=== PATIENT | female | born 1970 | race Caucasian/White ===

== ENCOUNTER 2019-11-30 13:16 | Emergency (ER) | payer OTHER ==
[~2019-11-30] VITALS: Ht 162.6 cm; Wt 52.6 kg
[~2019-11-30 13:16] MED LIST: DIAZ5 PO; KETO10 PO; ONDA4ODT MM; OXYACE5T PO; PHENA200 PO; RXONDA4ODT MM; RXOXYACE PO; TRAM50 PO
[2019-11-30 15:09] LABS: BASOPHILS ABSOLUTE AUTO 0.07 K/mm3 (0.00-0.23); BASOPHILS PERCENT AUTO 1 % (0-2); EOSINOPHILS ABSOLUTE AUTO 0.21 K/mm3 (0.00-0.68); EOSINOPHILS PERCENT AUTO 4 % (0-6); Hematocrit 36.3 % (33.0-51.0); Hemoglobin 10.8 g/dL (11.5-16.0); IMMATURE GRAN ABSOLUTE AUTO 0.01 K/mm3 (0.00-0.10); IMMATURE GRAN PERCENT AUTO 0 % (0-1); LYMPHOCYTES ABSOLUTE AUTO 2.25 K/mm3 (0.84-5.20); LYMPHOCYTES PERCENT AUTO 38 % (21-46); MONOCYTES ABSOLUTE AUTO 0.37 K/mm3 (0.16-1.47); MONOCYTES PERCENT AUTO 6 % (4-13); Mean Corpuscular HGB Conc 29.8 g/dL (31.5-36.5); Mean Corpuscular Volume 74 fL (80-100); Mean Platelet Volume 10.5 fL (9.1-12.4); NEUTROPHILS PERCENT AUTO 51 % (41-73); Platelet Count 317 K/mm3 (150-400); RDW Coefficient Variation 19.8 % (11.7-14.2); RDW Standard Deviation 52.1 fL (35.1-46.3); Red Blood Cell Count 4.91 M/mm3 (3.80-5.20); White Blood Cell Count 5.91 K/mm3 (4.00-11.30)
[2019-11-30 15:31] LABS: Alanine Aminotransfer (ALT/SGP 16 U/L (12-78); Albumin, Blood 3.9 g/dL (3.4-5.0); Albumin/Globulin Ratio 0.9 (0.8-1.8); Alk Phos 64 U/L (50-136); Anion Gap 2 mmol/L (6-16); Aspartate Aminotrans (AST/SGOT 11 U/L (12-37); Bilirubin, Total 0.6 mg/dL (0.1-1.0); Blood Urea Nitrogen 14 mg/dL (8-24); Bun/Creatinine Ratio 19.8 (12.0-20.0); CO2, Blood 31 mmol/L (21-32); Calcium, Blood 8.8 mg/dL (8.5-10.1); Chloride, Blood 104 mmol/L (98-108); Creatinine, Blood 0.71 mg/dL (0.40-1.00); Globulin, Blood 4.4 g/dL (2.2-4.0); Glomerular Filtration Rate >60 (60-); Glucose, Blood 85 mg/dL (70-99); Potassium, Blood 3.8 mmol/L (3.5-5.5); Sodium, Blood 137 mmol/L (136-145); Total Protein, Blood 8.3 g/dL (6.4-8.2)
== END 2019-11-30 16:40 | disposition left against medical advice (07) ==
LOC: ER 13:16
PROVIDERS: Physician Assistant
DX: R13.10 Dysphagia, unspecified (principal); R11.10 Vomiting, unspecified; Z98.84 Bariatric surgery status
CPT/HCPCS: 36415; 80053; 85025; 96360; 99283-25; J7030

== ENCOUNTER 2019-12-02 22:01 | Observation (INO) | payer OTHER ==
[~2019-12-02] VITALS: Ht 162.6 cm; Wt 53.7 kg
[2019-12-02] MEDS ORDERED: ALPRAZOLAM0.5 M1 PO (22:23)
[2019-12-02] MEDS ORDERED: TRAZ100 PO (22:24)
[2019-12-02 22:45] LABS: BASOPHILS ABSOLUTE AUTO 0.05 K/mm3 (0.00-0.23); BASOPHILS PERCENT AUTO 1 % (0-2); EOSINOPHILS ABSOLUTE AUTO 0.24 K/mm3 (0.00-0.68); EOSINOPHILS PERCENT AUTO 4 % (0-6); Hematocrit 32.3 % (33.0-51.0); Hemoglobin 9.5 g/dL (11.5-16.0); IMMATURE GRAN PERCENT AUTO 0 % (0-1); LYMPHOCYTES ABSOLUTE AUTO 2.18 K/mm3 (0.84-5.20); LYMPHOCYTES PERCENT AUTO 39 % (21-46); MONOCYTES ABSOLUTE AUTO 0.42 K/mm3 (0.16-1.47); MONOCYTES PERCENT AUTO 8 % (4-13); Mean Corpuscular HGB 21.6 pg (26.0-34.0); Mean Corpuscular HGB Conc 29.4 g/dL (31.5-36.5); Mean Corpuscular Volume 74 fL (80-100); Mean Platelet Volume 10.5 fL (9.1-12.4); NEUTROPHILS ABSOLUTE AUTO 2.66 K/mm3 (1.96-9.15); NEUTROPHILS PERCENT AUTO 48 % (41-73); Platelet Count 289 K/mm3 (150-400); RDW Coefficient Variation 19.5 % (11.7-14.2); RDW Standard Deviation 51.7 fL (35.1-46.3); Red Blood Cell Count 4.39 M/mm3 (3.80-5.20); White Blood Cell Count 5.55 K/mm3 (4.00-11.30)
[2019-12-02 23:04] LABS: Alanine Aminotransfer (ALT/SGP 14 U/L (12-78); Albumin, Blood 3.3 g/dL (3.4-5.0); Albumin/Globulin Ratio 0.8 (0.8-1.8); Alk Phos 57 U/L (50-136); Anion Gap 2 mmol/L (6-16); Aspartate Aminotrans (AST/SGOT 10 U/L (12-37); Bilirubin, Total 0.4 mg/dL (0.1-1.0); Blood Urea Nitrogen 11 mg/dL (8-24); Bun/Creatinine Ratio 15.2 (12.0-20.0); CO2, Blood 31 mmol/L (21-32); Calcium, Blood 8.3 mg/dL (8.5-10.1); Chloride, Blood 107 mmol/L (98-108); Creatinine, Blood 0.72 mg/dL (0.40-1.00); Globulin, Blood 3.9 g/dL (2.2-4.0); Glomerular Filtration Rate >60 (60-); Glucose, Blood 88 mg/dL (70-99); Potassium, Blood 3.5 mmol/L (3.5-5.5); Sodium, Blood 140 mmol/L (136-145); Total Protein, Blood 7.2 g/dL (6.4-8.2)
[2019-12-02 23:46] LABS: Source, Urine Clean Catch
[2019-12-02 23:49] LABS: Appearance, Urine Clear (Clear); Blood, Urine 1+ (Neg); Color, Urine Amber (P-Yellow); Glucose Qualitative, Urine Neg (Neg); Ketones, Urine 1+ (Neg); Leukocyte Esterase, Urine 1+ (Neg); Nitrite, Urine Neg (Neg); Protein, Urine 2+ (Neg); Specific Gravity, Urine 1.025 (1.003-1.022); Urobilinogen, Urine 2+ (Normal)
[2019-12-02 23:50] LABS: Bilirubin, Urine 1+ (Neg)
[2019-12-02 23:58] LABS: Bacteria Many /hpf; Calcium Oxalate Crystals Few /hpf; Mucus Heavy (0-Heavy); Red Blood Cells, Urine 0-2 /hpf (0-2); Squamous Epithelial Cells Few /hpf (Few)
[2019-12-03] MEDS ORDERED: FAMO20 PO (03:02)
--- NOTE | 2019-12-03 03:41 | NUR ---
0257 PT ARRIVED TO ROOM VIA WC FROM ER IN STABLE CONDITION. PT REPORTS CRAMPING ABD PAIN, NAUSEA BUT STATES NAUSEA IS REALLY HER BASELINE AND SHE JUST DOESN'T KEEP THINGS DOWN, SOB WITH PAIN. PT RATES HER PAIN AT A 5/10 AND JUST RECIEVED FENTANYL. ON RA AT 98%. PT REPORTS THAT SHE WOULDN'T REALLY CALL IT NAUSEA THAT SHE JUST THROWS UP OR CAN'T KEEP FOOD DOWN BUT THAT IT IS NORMAL FOR HER. WILL CONTINUE TO MONITOR FOR NEED FOR ANY MORE PRN'S AND ADMINISTER MEDICATIONS SCHEDULED. NO OTHER APPARENT SIGNS OF DISTRESS. CALL LIGHT IS IN REACH.
--- NOTE | 2019-12-03 05:55 | NUR ---
PT IS AAO X 4, ON RA 98%. 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 SOB WITH PAIN. SCD'S.
--- NOTE | 2019-12-03 05:55 | NUR ---
PT LYING IN BED, EYES CLOSED, APPEARS TO BE RESTING. BREATHING IS EVEN, UNLABORED. NO APPARENT SIGNS OF DISTRESS. CALL LIGHT IS IN REACH. NO OTHER CHANGES THIS SHIFT.
--- NOTE | 2019-12-03 08:46 | NUR ---
PER HE IS IN OFFICE MARYANNE. PATIENT CAN EAT ANYTHING TODAY.HE WILL WRITE ORDERS FOR LATER. PROCEDURE PROBABLY 729
--- NOTE | 2019-12-03 10:07 | NUR ---
PATIENT DOES NOT WISH TO WAIT TILL TOMORROW TO HAVE EGD. IN TO TALK TO PATIENT. PATIENT SIGNS AMA. PER HE WOULD DO PROCEDURE TOMORROW MORNING. SAID=WILMAN ALSO EXPLAINS SHE IS NOT EMERGENCY AND THOSE WHO ARE HAVE TO COME FIRST. PATIENT STS "I DON'T CARE ABOUTN ANYONE ELSE." IV TAKEN OUT, HOME APPLIANCE TECHNICIAN WALKS PATIENT DONE TO E.R. SIDE OF BUILDING.
== END 2019-12-03 10:00 | disposition left against medical advice (07) ==
LOC: ER 22:01 → MEDS 22:02
PROVIDERS: Emergency Medicine; ADMIT Family Medicine
DX: R13.10 Dysphagia, unspecified (principal); R10.9 Unspecified abdominal pain; G47.00 Insomnia, unspecified; F17.210 Nicotine dependence, cigarettes, uncomplicated; Z79.899 Other long term (current) drug therapy
CPT/HCPCS: 36415; 74176; 76705; 80053; 81001; 81025; 83690; 85025; 87086; 93005; 93010; 96361; 96374; 96375; 99285-25; C9113; G0378; J0696; J2405; J3010; J7030

== ENCOUNTER 2019-12-06 10:30 | Day surgery (SDC) | payer OTHER ==
[~2019-12-06] VITALS: Wt 53.0 kg
[~2019-12-06 10:30] MED LIST changes: +ALPRAZOLAM0.5 M1 PO; +FAMO20 PO; +TRAZ100 PO
--- NOTE | 2019-12-06 14:13 | NUR ---
Lungs clear T/O to Auscultation. History, Chart, Medications and Allergies reviewed before start of procedure.Pre-Op teaching done. Pt verbalizes understanding. Patient confirms NPO status and agrees with scheduled surgery. Patient States Post-Procedure ride home has been arranged.
--- NOTE | 2019-12-06 14:31 | NUR ---
12/06/19 1431 ESTRELLA BHANDARI History, Chart, Medications and Allergies reviewed before start of procedure. 3-LEAD EKG REVIEWED WITH PHYSICIAN PRIOR TO START OF PROCEDURE. O2 VIA N/C INTACT THROUGHOUT SEDATION/PROCEDURE. MONITOR INTACT WITH CONTINUOUS PULSE OXIMETRY AND INTERMITTENT BP. PATIENT DETERMINED TO BE ASA APPROPRIATE FOR PROPOFOL SEDATION PRIOR TO START OF PROCEDURE BY DR. GONG.
--- NOTE | 2019-12-06 15:23 | NUR ---
DR. GONG SPEAKING WITH PT.
== END 2019-12-06 22:34 | disposition home or self-care (01) ==
LOC: ORSCMMR 10:30 → ORSCSDS 15:00 → ORD 15:00 → ORSCMMR 22:34
PROVIDERS: Internal Medicine Gastroenterology
PROC: 0D758ZZ Dilation of Esophagus, Via Natural or Artificial Opening Endoscopic (ICD-10-PCS; principal; 2019-12-06 15:00)
DX: Z11.59 Encounter for screening for other viral diseases (principal); R11.2 Nausea with vomiting, unspecified; K22.2 Esophageal obstruction; F17.210 Nicotine dependence, cigarettes, uncomplicated
CPT/HCPCS: C1726; J2250; J2704; J7120; U0002

== ENCOUNTER → 2021-07-03 | Outpatient (CLI) | payer OTHER ==
[~2021-07-03] MED LIST changes: +OMEP20ER
[2021-07-04 13:20] LABS: Candida species (DNA Probe) Negative (NEGATIVE); G. vaginalis (DNA Probe) Negative (NEGATIVE); T. vaginalis (DNA Probe) Negative (NEGATIVE)
[2021-07-06 14:07] LABS: HPV 16 Negative (Negative); HPV 18 Negative (Negative); HPV OTHER HR TYPES Negative (Negative)
== END | disposition home or self-care (01) ==
LOC: LAB SHORT 16:50
PROVIDERS: Registered Nurse
DX: Z12.4 Encounter for screening for malignant neoplasm of cervix (principal); N89.8 Other specified noninflammatory disorders of vagina
CPT/HCPCS: 87480; 87510; 87624; 87660; G0123